=== PATIENT | female | born 1960 | race Caucasian/White ===

== ENCOUNTER 2019-04-04 09:49 | Emergency (ER) | payer OTHER ==
[~2019-04-04] VITALS: Ht 167.6 cm; Wt 57.0 kg
[~2019-04-04 09:49] MED LIST: ATEN50TA PO; BACL10TA PO; CIPR500T94 PO; GABA-586 PO; HYDR12.58 PO; ONDA4TAB10 PO; POTA10TA5 PO
[2019-04-04 09:55] VITALS: BP 140/84
[2019-04-04] MEDS ORDERED: DOXY100T PO (10:12)
[2019-04-04] MEDS ORDERED: PHEN-318 PO (10:12)
--- NOTE | 2019-04-04 10:12 | PHYS DOC ---
Past History Past Medical History: Hypertension, Other Past Surgical History: Cholecystectomy, Other Additional Past Surgical Histo: metatarsal surgery, Achilles tendon surgery Smoking: Non-smoker Alcohol Use: Occasionally Drug Use: None Adult General Chief Complaint Chief Complaint: URINARY FREQUENCY HPI HPI Patient is a 59-year-old female presents with urinary frequency, urgency, and discomfort for approximately the past week. Over the course of the past month patient has been on 2 different courses of antibiotics, Macrodantin, and a fl uoroquinolone for previous urinary tract infection, prescribed by the urgent care. Symptoms do improve with these medicines but come back relatively quickly. She has bladder prolapse as a result of going through menopause. She denies any blood in the urine. Denies any back pain or flank pain. That is new or different. She denies any fever. Nothing makes the current symptoms better or worse. Symptoms are mild to moderate.[] Review of Systems Review of Systems Constitutional: Denies fever or chills [] Eyes: Denies change in visual acuity, redness, or eye pain [] HENT: Denies nasal congestion or sore throat [] Respiratory: Denies cough or shortness of breath [] Cardiovascular: No chest pain or palpitations[] GI: Denies abdominal pain, nausea, vomiting, bloody stools or diarrhea [] : See history of present illness[] Musculoskeletal: Denies back pain or joint pain [] Integument: Denies rash or skin lesions [] Neurologic: Denies headache, focal weakness or sensory changes [] Endocrine: Denies polyuria or polydipsia [] All other systems were reviewed and found to be within normal limits, except as documented in this note. Allergies Allergies Allergies Coded Allergies Type Severity Reaction Last Updated Verified Penicillins Allergy Unknown 11/08/15 Yes Physical Exam Physical Exam Constitutional: Well developed, well nourished, no acute distress, non-toxic appearance. [] HENT: Normocephalic, atraumatic, bilateral external ears normal, oropharynx moist, no oral exudates, nose normal. [] Eyes: PERRLA, EOMI, conjunctiva normal, no discharge. [] Neck: Normal range of motion, no tenderness, supple, no stridor. [] Cardiovascular:Heart rate regular rhythm, no murmur [] Lungs & Thorax: Bilateral breath sounds clear to auscultation [] Abdomen: Bowel sounds normal, soft, no tenderness, no masses, no pulsatile masses. [] Skin: Warm, dry, no erythema, no rash. [] Back: No tenderness, no CVA tenderness. [] Extremities: No tenderness, no cyanosis, no clubbing, ROM intact, no edema. [] Neurologic: Alert and oriented X 3, normal motor function, normal sensory function, no focal deficits noted. [] Psychologic: Affect normal, judgement normal, mood normal. [] EKG EKG [] Radiology/Procedures Radiology/Procedures [] Course & Med Decision Making Course & Med Decision Making Pertinent Labs and Imaging studies reviewed. (See chart for details) ED course: Patient arrived, was placed in bed, and tolerated exam well. Findings and plan were discussed with patient and family who voiced understanding. All questions were answered. She was discharged in improved condition. Medical decision making: Patient with recurrent urinary tract infection. We'll try different class of antibiotics. She will need to follow up with her primary care physician for long-term evaluation and management. There is no evidence of pyelonephritis, nor sepsis due to UTI.[] Dragon Disclaimer Dragon Disclaimer This electronic medical record was generated, in whole or in part, using a voice recognition dictation system. Departure Departure: Impression: Primary Impression: UTI (urinary tract infection) Disposition: 01 HOME, SELF-CARE Condition: IMPROVED Referrals: REJI MOISE (PCP) Follow-up in 2 days Patient Instructions: Urinary Tract Infection Additional Instructions: Plan plenty of fluids. Follow-up with your regular doctor in 2 days. Return to the ER if worsening pain, fever of more than 101, or any other concerns. Scripts Phenazopyridine Hcl (PYRIDIUM) 200 Mg Tablet 1 TAB PO TID for urinary discomfort for 2 Days, #6 TAB 0 Refills Prov: BRITTANI LEDEZMA DO 04/04/19 Doxycycline Hyclate (DOXYCYCLINE HYCLATE) 100 Mg Tablet 1 TAB PO BID for urinary tract infection, #20 TAB Prov: BRITTANI LEDEZMA DO 04/04/19 Problem Qualifiers Primary Impression: UTI (urinary tract infection) Urinary tract infection type: site unspecified Hematuria presence: without hematuria Qualified Codes: N39.0 - Urinary tract infection, site not specified BRITTANI LEDEZMA DO Apr 04, 2019 10:12
[2019-04-04 10:24] LABS: U PREG PATIENT NEGATIVE (NEG)
[2019-04-04 10:49] LABS: BILIRUBIN,URINE NEG (NEG); CLARITY,URINE CLEAR; COLOR,URINE YELLOW; GLUCOSE,URINE NEG (NEG)
[2019-04-04 10:50] LABS: NITRITE,URINE NEG (NEG); UROBILINOGEN,URINE 0.2 mg/dL (0.2 mg/dL)
== END 2019-04-04 10:33 | disposition home or self-care (01) ==
LOC: ER 09:49
DX: N39.0 Urinary tract infection, site not specified (principal); I10 Essential (primary) hypertension; Z87.440 Personal history of urinary (tract) infections; Z90.49 Acquired absence of other specified parts of digestive tract; Z88.0 Allergy status to penicillin
CPT/HCPCS: 81003; 81025; 87086; 99284